=== PATIENT | male | born 1965 | race Caucasian/White ===

== ENCOUNTER 2019-10-05 19:58 | Emergency (ER) | payer BC ==
--- NOTE | 2019-10-05 20:12 | EDM.PDOC ---
ED HPI GENERAL MEDICAL PROBLEM - General Chief Complaint: Skin Complaint Stated Complaint: LIP SWELLING S/P I and D Time Seen by Provider: 10/05/19 20:01 Source of Information: Reports: Patient History Limitations: Reports: No Limitations - History of Present Illness INITIAL COMMENTS - FREE TEXT/NARRATIVE: 54 YO WM presents to ER complaining of increased swelling to upper lip after having a sebaceous cyst drained yesterday. Pt was placed on azithromycin x 3 days. Pt reports the lip is painful but he thinks the swelling has gone down a little since earlier in the day. Pt denies difficulty in breathing or swallowing , no rash, no fever/chills. Pt was concerned because he felt the swelling was greater than when he had it I and D yesterday prompting ER visit. Onset Date: 10/04/19 Duration: Day(s): (2) Location: Reports: Face Quality: Reports: Ache Severity: Mild Improves with: Reports: None Worsens with: Reports: None Associated Symptoms: Reports: No Other Symptoms - Related Data Allergies Allergy/AdvReac Type Severity Reaction Status Date / Time No Known Drug Allergies Allergy Other Verified 10/05/19 20:01 Home Meds: Home Meds Azithromycin 250 mg PO ASDIRECTED 10/05/19 [History] atorvaSTATin Calcium [Atorvastatin Calcium] 20 mg PO DAILY 10/05/19 [History] lisinopriL [Lisinopril] 10 mg PO DAILY 10/05/19 [History] ED ROS GENERAL - Review of Systems Review Of Systems: See Below Constitutional: Reports: No Symptoms HEENT: Reports: No Symptoms Respiratory: Reports: No Symptoms Cardiovascular: Reports: No Symptoms Endocrine: Reports: No Symptoms GI/Abdominal: Reports: No Symptoms : Reports: No Symptoms Musculoskeletal: Reports: No Symptoms Skin: Reports: Lesions (to upper lip) Neurological: Reports: No Symptoms Psychiatric: Reports: No Symptoms Hematologic/Lymphatic: Reports: No Symptoms Immunologic: Reports: No Symptoms ED EXAM, SKIN/RASH Exam: See Below Exam Limited By: No Limitations General Appearance: Alert, WD/WN, No Apparent Distress Throat/Mouth: Normal Inspection, Normal Lips, Normal Teeth, Normal Gums, Normal Oropharynx, Normal Voice, No Airway Compromise Head: Atraumatic, Normocephalic Neck: Normal Inspection, Supple, Non-Tender, Full Range of Motion Respiratory/Chest: No Respiratory Distress, Lungs Clear, Normal Breath Sounds, No Accessory Muscle Use, Chest Non-Tender Cardiovascular: Normal Peripheral Pulses, Regular Rate, Rhythm, No Edema, No Gallop, No JVD, No Murmur, No Rub GI/Abdominal: Normal Bowel Sounds, Soft, Non-Tender, No Organomegaly, No Distention, No Abnormal Bruit, No Mass Back Exam: Normal Inspection, Full Range of Motion, NT Extremities: Normal Inspection, Normal Range of Motion, Non-Tender, No Pedal Edema, Normal Capillary Refill Neurological: Alert, Oriented, CN II-XII Intact, Normal Cognition, Normal Gait, Normal Reflexes, No Motor/Sensory Deficits Psychiatric: Normal Affect, Normal Mood Skin: Other (sebaceous cyst to upper lip without erythema or drainage). No: Erythema Lymphatic: No Adenopathy Departure - Departure Time of Disposition: 20:23 Disposition: Home, Self-Care 01 Condition: Good Clinical Impression: Sebaceous cyst - Discharge Information Instructions: Epidermal Cyst Referrals: Vianca Paez MD [Primary Care Provider] - Forms: ED Department Discharge Additional Instructions: 1. discharge home 2. Septra DS twice/day x 7 days 3. follow up in clinic 10/08/2019 for recheck 4. return to ER for worsening symptoms - Assessment/Plan Assessment:: 1. infected sebaceous cyst Plan: 1. discharge home 2. Septra DS twice/day x 7 days 3. follow up in clinic 10/08/2019 for recheck 4. return to ER for worsening symptoms
[2019-10-05] MEDS ORDERED: Sulfamethoxazole/Trimethoprim 800-160 MG Tab PO ONE ×3 (20:15→20:23)
== END 2019-10-05 20:31 | disposition home or self-care (01) ==
LOC: KA.ED 19:58
DX: L72.3 Sebaceous cyst (principal); Z79.899 Other long term (current) drug therapy
CPT/HCPCS: 99283; A9270-GY

== ENCOUNTER 2022-01-19 11:24 | Day surgery (SDC) | payer BC ==
[2022-01-19] MEDS ORDERED: Lactated Ringers 1,000 ML IV SCH (11:30)
[2022-01-19] MEDS ORDERED: Sodium Chloride 0.9% 10 ML Syringe FLUSH PRN (11:30)
[2022-01-19] MEDS ORDERED: Midazolam 1 MG/ML 2 ML SDV ONE (13:19)
[2022-01-19] MEDS ORDERED: Propofol 200 MG/20 ML SDV ONE (13:19)
[2022-01-19] MEDS ORDERED: Lactated Ringers 1,000 ML ONE (13:23)
== END 2022-01-19 14:45 | disposition home or self-care (01) ==
LOC: KA.SDS 11:24
PROVIDERS: ATTEND Surgery
DX: K62.1 Rectal polyp (principal); K64.8 Other hemorrhoids; K64.4 Residual hemorrhoidal skin tags; I10 Essential (primary) hypertension; E78.5 Hyperlipidemia, unspecified; Z79.02 Long term (current) use of antithrombotics/antiplatelets; Z79.899 Other long term (current) drug therapy
CPT/HCPCS: 00812; J2250; J2704; J7120